=== PATIENT | male | born 1945 | race Caucasian/White ===

== ENCOUNTER 2018-02-07 17:18 | Emergency (ER) | payer OTHER, SELFPAY ==
[2018-02-07 17:30] VITALS: BP 149/80; PULSE 65; RESP 18; TEMP 36.9; O2SAT 98
--- NOTE | 2018-02-07 17:33 | ED_ITS ---
HPI - Head Injury General Chief complaint: Skin/Abscess/Foreign Body Stated complaint: HIT HEAD Time Seen by Provider: 02/07/18 17:24 Source: patient Mode of arrival: ambulatory Limitations: no limitations History of Present Illness HPI Narrative: 72-year-old male not on anticoagulation had a mechanical fall landed on the left side of his head with a laceration. No neck pain. Isn't ambulatory afterwards. No loss of consciousness. Bandage placed over the laceration prior to arrival Review of Systems Constitutional Denies frequent falls, Denies headache(s), Denies lethargy and Denies malaise Eyes Denies loss of vision ENT Ears, Nose, Mouth, and Throat: Denies vertigo, Denies dizziness, Denies headache (s), Denies nasal trauma, Denies sore throat and Denies throat swelling Cardiovascular Denies syncope Musculoskeletal Denies abnormal gait, Denies atrophy, Denies arthralgias and Denies numbness Integumentary/Breasts Comments: Laceration above left eye Neurologic Denies abnormal gait, Denies behavioral changes, Denies confusion, Denies vertigo, Denies dizziness, Denies syncope, Denies frequent falls, Denies headache(s), Denies loss of vision, Denies memory loss and Denies numbness Psychiatric Denies behavioral changes, Denies confusion and Denies memory loss Hematologic/Lymphatic Denies easy bleeding and Denies easy bruising Allergic/Immunologic Denies throat swelling [facility] Medical History Healthy adult (Acute) Surgical History No pertinent past surgical history (Acute) Social History Smoking Status: Never smoker Exam Initial Vital Signs Initial Vital Signs: Vital Signs Temperature 98.5 F 02/07/18 17:30 Pulse Rate 65 02/07/18 17:30 Respiratory Rate 18 02/07/18 17:30 Blood Pressure 149/80 H 02/07/18 17:30 Pulse Oximetry 98 02/07/18 17:30 Const General: cooperative, healthy appearing, comfortable and well developed Orientation: alert, awake and oriented x3 HENMT Head: No atraumatic, No contusion and laceration Eyes Pupils: PERRL EOM: EOM intact bilaterally Resp Effort & Inspection: normal respiratory effort Back/Spine/Pelvis Cervical Spine: cervical ROM normal and No step off deformity Skin Other: 3 cm laceration above left eye Neuro General: alert, awake and oriented x3 Procedures Laceration Repair Laceration 1: Site: face Side (If applicable): left Size (cm): 3 Description: linear Depth: involves muscle layer Local Anesthetic: lidocaine 1% and with epi Amount of anesthesia used (mL): 4 Pre-repair: wound explored Skin layer closed with: nylon Size (cm): 4-0 Number of sutures: 5 Technique: simple, interrupted Subcutaneous layer closed with: chromic gut Size: 5-0 Number of sutures: 3 Technique: simple, interrupted Course Orders Ordered: ED Orders 02/07/18 17:55 CT head/brain wo con Stat Discontinued Medications Diphtheria/Tetanus/Acell Pertussis (Adacel) 0.5 ml IM .ONCE ONE Stop: 02/07/18 17:52 Last Admin: 02/07/18 17:52 Dose: 0.5 ml Vital Signs - 8 hr 02/07/18 17:30 Temperature 98.5 F Pulse Rate 65 Respiratory Rate 18 Blood Pressure 149/80 H Pulse Oximetry 98 MDM - Head Injury Imaging Data CT scan - head: Radiologist's impression: No bleed, no skull fracture, no acute pathology MDM Narrative Medical decision making narrative: Had long discussion with the patient and his regarding head CT. Informed them that we will be doing a head CT to look for a skull fracture or a head bleed not to look for concussion. After this discussion the patient and his opted to have the head CT. The lacerations were closed as above. His tetanus was updated. He was given return precautions. He expressed understanding and agreement with plan. Discharge Plan Departure Patient Disposition: Home Clinical Impression: CHI (closed head injury), Laceration Instructions: DI for Concussion, DI for Laceration Repair, Closed Head Injury Activity Restrictions/Additional Instructions: You can shower like normal. You can use soap and water like normal. Keep the stitches covered at night when you are sleeping. They do need to be removed in the next 7-10 days. Follow up with your primary care doctor. Return to the emergency department for any new or worsening symptoms
[2018-02-07] MEDS: TET,DIPH,PERTUSS(ACELL),VAC/PF 0.5 ML SYRINGE IM (17:52)
--- NOTE | 2018-02-07 17:55 | DI.CT.S_ITS ---
PROCEDURE: CT HEAD/BRAIN WO CON INDICATIONS: Fall left-sided head lac TECHNIQUE: Noncontrast 4.5 mm thick angled axial sections acquired from the foramen magnum to the vertex, with coronal and sagittal reformats. For radiation dose reduction, the following was used: automated exposure control, adjustment of mA and/or kV according to patient size. COMPARISON: None. FINDINGS: Image quality: Excellent. CSF spaces: Basal cisterns are patent. No extra-axial fluid collections. Ventricles are normal in size and shape. Brain: No midline shift. No intracranial masses or hemorrhage. Villa-white matter interface is normal. Skull and face: Calvarium and visualized facial bones are intact, without suspicious lesions. Sinuses: Visualized sinuses and mastoids are clear. IMPRESSION: No trauma found. Dictated by: Audi Castañeda M.D. on 02/07/2018 at 18:40 Approved by: Audi Castañeda M.D. on 02/07/2018 at 18:40
--- NOTE | 2018-02-07 18:04 | PC.NURSE ---
witnessed mech glf, trip/fell forward while carrying heavy object, struck rt side head, lac to rt brow, denies loc/neck pain/dizziness/nausea or other sx, no midline neck/back tenderness, amb to room with steady gait
[2018-02-07 18:56] VITALS: BP 140/80; PULSE 59; RESP 14; O2SAT 100
== END 2018-02-07 18:56 | disposition home or self-care (01) ==
PROVIDERS: Emergency Provider Emergency Medicine
DX: S01.91XA Laceration without foreign body of unspecified part of head, initial encounter (principal); W19.XXXA Unspecified fall, initial encounter
CPT/HCPCS: 12013; 70450; 90471; 99282; 99284; 90715